=== PATIENT | male | born 1950 | race Caucasian/White ===

== ENCOUNTER 2018-01-04 11:17 | Day surgery (SDC) | payer BC, MEDICARE ==
[~2018-01-04 11:17] MED LIST: Acetaminophen TAB* 325 MG PO PRN; Buffered Lidocaine 0.9% SYRIN* 5 ML/SYR SYRINGE INTRADERM ONE; Cyclopentolate 1% OPTH.SOL* 2 ML BTL ONE; Ketorolac 0.5% OPHTH (NF) 0.5 % 5 ML BTL ONE; Lidocaine 1% MPF* 2 ML VIAL ONE; Neomycin/Polymy/Dex OPHTH.OIN* 3.5 GM ONE; Phenylephrine 2.5% OPTH.SOL* 2 ML BTL ONE; Tetracaine 0.5% OPTH.SOL 4 ML* 1 DROP BTL ONE; Tropicamide 1% OPTH.SOL* BTL ONE
[2018-01-04] MEDS ORDERED: fentaNYL* 50 MCG/ML 5 ML VIAL (250 MCG VIAL) ONE (11:47)
[2018-01-04] MEDS ORDERED: Midazolam* 1 MG/ML 2 ML VIAL (2 MG) ONE ×2 (11:48→12:37)
[2018-01-04] MEDS ORDERED: Phenylephr/Ketorolac 1%/0.3% OPH DROP BTL ONE (12:26)
[2018-01-04 13:32] VITALS: BP 130/65
--- NOTE | 2018-01-05 11:22 | OP ---
OPERATIVE REPORT: DATE OF OPERATION: 01/04/18 DATE OF : 48 SURGEON: Dr. Alfonzo Byrd. PULMONARY NURSE PRACTITIONER: None. ANESTHESIA: Topical with intravenous sedation. PRE-OP DIAGNOSIS: Cataract with glaucoma, left eye. POST-OP DIAGNOSIS: Cataract with glaucoma, left eye. OPERATIVE PROCEDURE: Phacoemulsification and cataract extraction with posterior chamber intraocular lens implant and a CyPass implant, left eye. COMPLICATIONS: None. BLOOD LOSS: None. OPERATIVE FINDINGS: The patient was brought to the operating room and given a small amount of intrav enous sedation. A drop of tetracaine was placed into his left eye. The patient was prepped and drap ed in the usual sterile fashion for ophthalmic surgery and attention was directed to the left eye whe re a speculum was placed. A paracentesis was created at the 5 o'clock position. A 0.1 cc of 1% pres ervative-free lidocaine was injected into the anterior chamber followed by DisCoVisc. The eye was di gitally stabilized while a 2.75 mm keratome was used to create a triplanar clear corneal incision at the 3 o'clock position. A continuous curvilinear capsulorrhexis was created with a cystotome and Utr yesenia forceps. BSS and a cannula were used to hydrodissect the lens from the capsule. Phacoemulsificat ion was performed in a gnejgo-mvh-owqpavp technique to create 4 fragments, which were removed. Resid ual cortical material was removed with irrigation and aspiration. DisCoVisc was used to inflate the capsular bag. An AU00T0 17.0 diopter lens was folded and inserted into the capsular bag. Supplementa l DisCoVisc was placed to deepen the anterior chamber and to coat the surface of the cornea. The pat ient's head was rotated away from the surgeon. The microscope was rotated toward the surgeon. A fatemeh io prism was placed on the surface of the eye. A CyPass on its artificial glass eye maker was introduced into the ante rior chamber. Under direct visualization, the CyPass was introduced into the supraciliary space in th e inferonasal aspect of the angle. The CyPass was tapped to the appropriate depth. The artificial glass eye maker and the gonio prism were removed. The patient's head and the microscope were returned to neutral positi on. Viscoelastic was removed from the eye using irrigation and aspiration. BSS on a cannula were us ed to hydrate the corneal stroma and seal the wound. At the end of the case the pupil was round. The lens was centered and stable. The CyPass was in good position. The eye pressure appeared normal. The wound appeared water tight. Topical Maxitrol ointment was placed on the surface of the eye. The eye was closed, patched and shielded, and the patient was sent to the [facility] with postoperative instructions and followup appointment given. [id number]/[facility] #: [id number]
== END 2018-01-04 13:14 | disposition home or self-care (01) ==
LOC: OREAST 11:17
PROVIDERS: ATTEND Ophthalmology
DX: H25.12 Age-related nuclear cataract, left eye (principal); J45.909 Unspecified asthma, uncomplicated; I10 Essential (primary) hypertension; Z88.0 Allergy status to penicillin; Z88.2 Allergy status to sulfonamides; Z87.2 Personal history of diseases of the skin and subcutaneous tissue; Z91.81 History of falling
CPT/HCPCS: A9270-GY; C9447; J2250; J3010; V2632

== ENCOUNTER 2018-01-11 06:24 | Day surgery (SDC) | payer BC, MEDICARE ==
[~2018-01-11 06:24] MED LIST changes: -Cyclopentolate 1% OPTH.SOL* 2 ML BTL ONE; -Ketorolac 0.5% OPHTH (NF) 0.5 % 5 ML BTL ONE; -Lidocaine 1% MPF* 2 ML VIAL ONE; -Neomycin/Polymy/Dex OPHTH.OIN* 3.5 GM ONE; -Phenylephrine 2.5% OPTH.SOL* 2 ML BTL ONE; -Tetracaine 0.5% OPTH.SOL 4 ML* 1 DROP BTL ONE; -Tropicamide 1% OPTH.SOL* BTL ONE
[2018-01-11] MEDS ORDERED: fentaNYL* 50 MCG/ML 2 ML VIAL (100 MCG VIAL) ONE (07:25)
[2018-01-11] MEDS ORDERED: Midazolam* 1 MG/ML 2 ML VIAL (2 MG) ONE ×2 (07:26→07:40)
[2018-01-11] MEDS ORDERED: Cyclopentolate 1% OPTH.SOL* 2 ML BTL ONE (07:52)
[2018-01-11] MEDS ORDERED: Ketorolac 0.5% OPHTH (NF) 0.5 % 5 ML BTL ONE (07:52)
[2018-01-11] MEDS ORDERED: Lidocaine 1% MPF* 2 ML VIAL ONE (07:52)
[2018-01-11] MEDS ORDERED: Tetracaine 0.5% OPTH.SOL 4 ML* 1 DROP BTL ONE (07:52)
[2018-01-11] MEDS ORDERED: Neomycin/Polymy/Dex OPHTH.OIN* 3.5 GM ONE (07:52)
[2018-01-11] MEDS ORDERED: Tropicamide 1% OPTH.SOL* BTL ONE (07:52)
[2018-01-11] MEDS ORDERED: Phenylephrine 2.5% OPTH.SOL* 2 ML BTL ONE (07:52)
[2018-01-11 08:25] VITALS: BP 132/83
--- NOTE | 2018-01-12 01:57 | OP ---
dATE OF OPERATION: 01/11/18 - [facility] DATE OF : 48 SURGEON: Alfonzo Byrd MD COTTON CONVERTER: None. ANESTHESIA: Topical with intravenous sedation. PRE-OP DIAGNOSIS: Cataract with glaucoma, right eye. POST-OP DIAGNOSIS: Cataract with glaucoma, right eye. OPERATIVE PROCEDURE: Phacoemulsification and cataract extraction with posterior chamber intraocular lens implant and CyPass implant, right eye. COMPLICATIONS: None. BLOOD LOSS: None. DESCRIPTION OF PROCEDURE: The patient was brought to the operating room and given a small amount of intra-venous sedation. A drop of tetracaine was placed into his right eye. The patient was prepped and draped in the usual sterile fashion for ophthalmic surgery and attention was directed to the right eye where a speculum was placed. A paracentesis was created at the 11 o'clock position and 0.1 cc of 1% preservative-free lidocaine was injected into the chamber followed by DisCoVisc. The eye was digitally stabilized while a 2.75 mm keratome was used to create a triplanar clear corneal incision at the 9 o'clock position. A continuous curvilinear capsulorrhexis was created with a cystotome and Utrata forceps. BSS on a cannula was used to hydrodissect the lens from the capsule. Phacoemulsification was performed in a gepupg-huo-guihbnt technique to create 4 fragments, which were removed. Residual cortical material was removed with irrigation and aspiration. DisCoVisc was used to inflate the capsular bag. An AU00T0 17.5 diopter lens was inserted into the capsular bag. Supplemental DisCoVisc was used to deepen the anterior chamber and coat the surface of the cornea. The patient's head was rotated away from the surgeon and the microscope was rotated towards the surgeon. A gonioprism was placed on the surface of the corneae. A CyPass was introduced into the anterior chamber on its partner marketing intern. Under direct visualization, the CyPass was placed into the supraciliary space in the superonasal aspect of the angle. The CyPass partner marketing intern and the gonioprism were removed. The patient's head and the microscope were returned to the neutral position. Irrigation and aspiration was performed to remove viscoelastic from the eye. BSS on a cannula was used to hydrate the cornea and seal the wound. At the end of the case, the pupil was round. The lens was centered and stable. The CyPass was in good position. The eye pressure appeared normal and the wound was watertight. The speculum was removed and topical Maxitrol ointment was placed on the surface of the eye. The eye was closed, patched, and shielded and the patient was sent to the recovery room in stable condition with postoperative instructions and followup appointment given. [id number]/[facility] #: [id number] MARILYN
== END 2018-01-11 08:20 | disposition home or self-care (01) ==
LOC: OREAST 06:24
PROVIDERS: ATTEND Ophthalmology
DX: H25.11 Age-related nuclear cataract, right eye (principal); H40.9 Unspecified glaucoma; I10 Essential (primary) hypertension; J45.909 Unspecified asthma, uncomplicated; Z88.0 Allergy status to penicillin; Z88.2 Allergy status to sulfonamides; Z87.2 Personal history of diseases of the skin and subcutaneous tissue; Z91.81 History of falling
CPT/HCPCS: A9270-GY; J2250; J3010; V2632